=== PATIENT | female | born 1950 | race Two or more races ===

== ENCOUNTER 2017-11-19 05:50 | Day surgery (SDC) | payer OTHER | END 2017-11-19 10:35 | disposition home or self-care (01) | LOC: AMB-ENDOS 05:50 | DX: K57.30 Diverticulosis of large intestine without perforation or abscess without bleeding (principal); K64.2 Third degree hemorrhoids; K92.1 Melena ==

== ENCOUNTER 2017-12-21 11:00 | Inpatient (IN) | payer OTHER ==
[~2017-12-21] VITALS: Ht 160 cm; Wt 63.5 kg
[2017-12-21] MEDS ORDERED: CRESTOR10 MG (16:44)
[2017-12-21] MEDS ORDERED: SYNTHROID112 MCG (16:44)
[2017-12-21] MEDS ORDERED: TOPROL XL25 M1 (16:44)
[2017-12-21] MEDS ORDERED: ATACAND16 MG (16:44)
[2017-12-21] MEDS ORDERED: LEXAPRO5 MG (16:45)
== END 2017-12-31 11:04 | disposition home or self-care (01) | DRG 331 ==
LOC: O/R 12-28 06:20 → SURH 12-28 06:20 → SURG 12-28 10:30 → SURH 12-28 13:19
PROVIDERS: Colon & Rectal Surgery
PROC: 0DJD8ZZ Inspection of Lower Intestinal Tract, Via Natural or Artificial Opening Endoscopic (ICD-10-PCS; 2017-12-28)
PROC: 0DTE4ZZ Resection of Large Intestine, Percutaneous Endoscopic Approach (ICD-10-PCS; principal; 2017-12-28 10:30)
DX: K57.32 Diverticulitis of large intestine without perforation or abscess without bleeding (principal); I11.9 Hypertensive heart disease without heart failure; E03.8 Other specified hypothyroidism; M79.7 Fibromyalgia; F41.8 Other specified anxiety disorders; E11.9 Type 2 diabetes mellitus without complications; K21.9 Gastro-esophageal reflux disease without esophagitis

== ENCOUNTER → 2019-04-07 | Day surgery (SDC) | payer OTHER ==
[~2019-04-07] MED LIST: ATACAND16 MG; CRESTOR10 MG; LEXAPRO5 MG; SYNTHROID112 MCG; TOPROL XL25 M1
== END | disposition home or self-care (01) ==
LOC: ADM 03-29 09:00 → AMB-ENDOS 07:29
DX: K57.32 Diverticulitis of large intestine without perforation or abscess without bleeding (principal); K64.1 Second degree hemorrhoids